=== PATIENT | male | born 1975 | race Caucasian/White ===

== ENCOUNTER 2017-02-01 21:10 | Emergency (ER) | payer SELFPAY ==
[~2017-02-01] VITALS: Ht 180.3 cm; Wt 80.0 kg
[2017-02-01 21:11] VITALS: BP 148/91; PULSE 97; RESP 16; TEMP 98.5; O2SAT 99
[2017-02-01 23:48] VITALS: BP 144/87; PULSE 80; RESP 20; O2SAT 96
--- NOTE | 2017-02-02 00:32 | RADRPT ---
EXAM DATE/TIME: 02/02/2017 00:08 [facility] COMPARISON: No previous studies available for comparison. INDICATIONS : Shortness of breath. MEDICAL HISTORY : None. SURGICAL HISTORY : None. ENCOUNTER: Initial ACUITY: 2 weeks PAIN SCORE: 0/10 LOCATION: Bilateral chest FINDINGS: PA and lateral views of the chest demonstrate the lungs to be symmetrically aerated without evidence of mass, infiltrate or effusion. The cardiomediastinal contours are unremarkable. Osseous structure s are intact. CONCLUSION: Normal examination. Conrad Ojeda MD on February 02, 2017 at 0:30 Board Certified Radiologist. This report was verified electronically.
[2017-02-02 02:36] LABS: BASOPHIL # 0.1 TH/MM3 (0-0.2); BASOPHIL % 0.7 % (0.0-2.0); EOSINOPHIL # 0.1 TH/MM3 (0-0.4); EOSINOPHIL % 1.8 % (0.0-4.0); HEMATOCRIT 45.6 % (39.0-51.0); HEMO FLAGS DIFF FINAL; LYMPH % 39.2 % (9.0-44.0); LYMPHOCYTE # 3.1 TH/MM3 (1.0-4.8); MEAN CELL VOLUME 88.7 FL (80.0-100.0); MEAN CORPUSCULAR HEMOGLOBIN 29.4 PG (27.0-34.0); MEAN CORPUSCULAR HGB CONC 33.2 % (32.0-36.0); MONO % 8.5 % (0.0-8.0); NEUT % 49.8 % (16.0-70.0); PLATELET COUNT 214 TH/MM3 (150-450); RED BLOOD COUNT 5.14 MIL/MM3 (4.50-5.90); RED CELL DISTRIBUTION WIDTH 13.7 % (11.6-17.2)
[2017-02-02 02:47] LABS: BICARBONATE 29.4 MEQ/L (21.0-32.0)
[2017-02-02 02:48] LABS: POTASSIUM 4.1 MEQ/L (3.5-5.1)
[2017-02-02 02:51] LABS: APTT (PATIENT) 29.4 SEC (24.3-30.1); INTERNATIONAL NORMALIZED RATIO 0.9 RATIO; PROTHROMBIN TIME - PATIENT 10.2 SEC (9.8-11.6)
[2017-02-02] MEDS ORDERED: methylPREDNISolone SOD SUCC 125 MG/2 ML VIAL IV PUSH ONE (03:30)
[2017-02-02] MEDS ORDERED: RESP: ALBUTEROL 2.5 MG/IPRATROPIUM 0.5 MG NEB (SCH) NEB ONE (03:30)
[2017-02-02 04:46] VITALS: O2SAT 99
[2017-02-02] MEDS ORDERED: ALBUAER3 INH (04:48)
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
== END 2017-02-02 05:17 | disposition home or self-care (01) ==
LOC: NEPC 21:10
DX: J40 Bronchitis, not specified as acute or chronic (principal); R04.2 Hemoptysis; R06.02 Shortness of breath; I10 Essential (primary) hypertension; F17.200 Nicotine dependence, unspecified, uncomplicated; Z87.19 Personal history of other diseases of the digestive system; Z86.79 Personal history of other diseases of the circulatory system; Z87.39 Personal history of other diseases of the musculoskeletal system and connective tissue
CPT/HCPCS: 71020; 80048; 83880; 85025; 85379; 85610; 85730; 94664; 96374; 99284; J2930

== ENCOUNTER 2017-10-13 11:36 | Emergency (ER) | payer SELFPAY ==
[~2017-10-13] VITALS: Ht 180.3 cm; Wt 77.3 kg
[~2017-10-13 11:36] MED LIST: ALBUAER3 INH
[2017-10-13 12:05] VITALS: BP 168/86; PULSE 97; RESP 18; TEMP 98.3; O2SAT 98
[2017-10-13] MEDS ORDERED: SODIUM CHLORIDE 0.9% FLUSH 10 ML FLUSH IVF PRN (12:15)
[2017-10-13 13:32] LABS: AUTOMATED NEUTROPHIL # 3.9 TH/MM3 (1.8-7.7); BASOPHIL # 0.1 TH/MM3 (0-0.2); BASOPHIL % 0.9 % (0.0-2.0); EOSINOPHIL # 0.1 TH/MM3 (0-0.4); EOSINOPHIL % 0.8 % (0.0-4.0); HEMATOCRIT 48.6 % (39.0-51.0); HEMOGLOBIN 16.6 GM/DL (13.0-17.0); LYMPH % 35.2 % (9.0-44.0); LYMPHOCYTE # 2.5 TH/MM3 (1.0-4.8); MEAN CELL VOLUME 93.1 FL (80.0-100.0); MEAN CORPUSCULAR HEMOGLOBIN 31.8 PG (27.0-34.0); MEAN CORPUSCULAR HGB CONC 34.2 % (32.0-36.0); MONO % 7.7 % (0.0-8.0); MONOCYTE # 0.5 TH/MM3 (0-0.9); NEUT % 55.4 % (16.0-70.0); PLATELET COUNT 332 TH/MM3 (150-450); RED BLOOD COUNT 5.22 MIL/MM3 (4.50-5.90); RED CELL DISTRIBUTION WIDTH 12.6 % (11.6-17.2)
[2017-10-13 13:44] LABS: BILIRUBIN, URINE NEG (NEG); BLOOD, URINE NEG (NEG); GLUCOSE,URINE NEG (NEG); KETONE, URINE NEG (NEG); MUCUS URINE FEW /lpf (OCC); NITRITE,URINE NEG (NEG); PH, URINE 6.5 (5.0-8.5); URINE COLOR LIGHT-YELLOW (YELLW/STRAW); URINE LEUKOCYTE ESTERASE NEG (NEG)
[2017-10-13 13:50] LABS: ALBUMIN 4.1 GM/DL (3.4-5.0); AST (GOT) 67 U/L (15-37); BICARBONATE 27.9 MEQ/L (21.0-32.0); BLOOD UREA NITROGEN 4 MG/DL (7-18); CALCIUM 8.7 MG/DL (8.5-10.1); CHLORIDE 101 MEQ/L (98-107); CREATININE 1.06 MG/DL (0.60-1.30); GLOMERULAR FILTRATION RATE 77 ML/MIN (>89); GLUCOSE,RANDOM 72 MG/DL (74-106); SODIUM (NA) 137 MEQ/L (136-145)
[2017-10-13 13:52] LABS: ALT (GPT) 86 U/L (12-78)
[2017-10-13 13:54] LABS: ALKALINE PHOSPHATASE 108 U/L (45-117); TOTAL BILIRUBIN ADULT 0.4 MG/DL (0.2-1.0); TOTAL PROTEIN 7.8 GM/DL (6.4-8.2)
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
--- NOTE | 2017-10-13 16:21 | RADRPT ---
EXAM DATE/TIME: 10/13/2017 14:55 [facility] COMPARISON: No previous studies available for comparison. INDICATIONS : Left scrotal pain. MEDICAL HISTORY : Pancreatitis. Carcinoma, pancreas. Hypertension. SURGICAL HISTORY : Back surgery. Hip surgery. Bilateral knee surgery. ENCOUNTER: Initial ACUITY: 3 months PAIN SCORE: 3/10 LOCATION: Bilateral scrotum. MEASUREMENTS: RIGHT TESTICLE: 4.3 x 3.2 x 2.2cm LEFT TESTICLE: 3.7 x 2.7 x 2.1cm FINDINGS: RIGHT TESTICLE: Homogeneous echotexture without intra or extratesticular mass. Blood flow is symmetric and within no rmal limits. No hydrocele or varicocele. Epididymis is demonstrates a 3 mm simple cyst. LEFT TESTICLE: Homogeneous echotexture without intra or extratesticular mass. Blood flow is symmetric and within no rmal limits. There is a small hydrocele. There is a moderate-sized rectocele as well. SCROTUM: Within normal limits. CONCLUSION: 1. Small hydrocele on the left. 2. Small to moderate varicocele on the left. 3. 3 mm simple cyst within the right epididymis. 4. The testicles are normal in appearance. Blood flow to the testicles is intact. Jaswinder Knight MD on October 13, 2017 at 16:17 Board Certified Radiologist. This report was verified electronically.
== END 2017-10-13 16:38 | disposition home or self-care (01) ==
LOC: NEPD 11:36
DX: R10.30 Lower abdominal pain, unspecified (principal); I10 Essential (primary) hypertension; F17.200 Nicotine dependence, unspecified, uncomplicated; Z85.07 Personal history of malignant neoplasm of pancreas
CPT/HCPCS: 76870; 80053; 81001; 85025; 87491; 87591; 93975; 99285